=== PATIENT | male | born 1945 | race Caucasian/White ===

== ENCOUNTER 2018-11-23 13:55 | Inpatient (IN) | payer OTHER ==
[2018-11-23 14:09] LABS: PLATELET COUNT 156 10^3/uL (150-400)
--- NOTE | 2018-11-23 14:33 | EDPHY ---
H & P Stated Complaint: SKI CRASH @ [facility] - C/O LT RIB/FLSANK PAIN Time Seen by Provider: 11/23/18 14:30 HPI/ROS: CHIEF COMPLAINT: Skier versus tree, limited trauma activation, flank pain HISTORY OF PRESENT ILLNESS: The patient is brought in by paramedics as a limited trauma activation. He was a helmeted skier that struck a tree at a moderate rate of speed. The patient did not lose consciousness. He denies headache. He sustained a small abrasion to his face. Patient complains of pain in his posterior left ribs. His worsened with palpation, movement and deep breaths. The patient reports mild left upper quadrant pain. He denies any lower extremity complaints. The patient is not anticoagulated. Past medical history is significant for hypertension. Patient reports his pain is moderate to severe in nature. Patient did receive IV narcotics by paramedics pre-hospital. REVIEW OF SYSTEMS: A comprehensive 10 point review of systems is otherwise negative aside from elements mentioned in the history of present illness. Exam Limitations: No limitations - Personal History Current Tetanus Diphtheria and Acellular Pertussis (TDAP): Yes - Medical/Surgical History PMH: Past medical history: Hypertension, hypoaldosteronism, asthma Other PMH: HTN - Family History Significant Family History: No pertinent family hx - Social History Smoking Status: Never smoked - Physical Exam Exam: General Appearance: Alert, no distress Head: Superficial facial abrasions Eyes: Pupils equal, round, reactive ENT, Mouth: No hemotympanum, no oral trauma Neck: Nontender, trachea midline Respiratory: Tenderness to palpation left posterior chest wall, no subcutaneous air, lungs clear bilaterally Cardiovascular: Regular rate and rhythm Abdomen: Tenderness to palpation left upper quadrant Skin: No lacerations, No abrasion Back: Mild mid lumbar and thoracic tenderness Extremities: Nontender, full range of motion Neurological: A&Ox3, normal motor function, normal sensory exam Constitutional: Initial Vital Signs Temperature (C) 36.6 C 11/23/18 14:08 Heart Rate 57 L 11/23/18 14:08 Respiratory Rate 20 11/23/18 14:08 Blood Pressure 200/105 H 11/23/18 14:08 O2 Sat (%) 92 11/23/18 14:08 O2 Delivery Mode Nasal Cannula O2 (L/minute) 2 Allergies/Adverse Reactions: No Known Allergies Allergy (Unverified 11/23/18 14:06) Home Medications: Medication Instructions Recorded Cetirizine [ZyrTEC 10 mg (*)] 10 mg PO DAILY PRN 11/23/18 Eplerenone [Inspra 25 MG (*)] 50 mg PO BID 11/23/18 Fluticasone/Salmeterol [Advair Hfa 1 inh IH BID 11/23/18 115-21 Mcg Inhaler] Loratadine [Claritin 10 mg] 10 mg PO DAILY 11/23/18 Metoprolol Tartrate [Lopressor 50 50 mg PO BID 11/23/18 mg (*)] amLODIPine BESYLATE [Amlodipine 5 mg PO DAILY 11/23/18 Besylate] Medical Decision Making - Diagnostics Imaging Results: Imaging Impressions Chest X-Ray 11/23/18 13:58 Impression: 1. Minimally displaced posterior left eighth and ninth rib fractures. 2. Cardiomegaly. 3. Peribronchial thickening which can be seen with bronchitis or mild fluid overload. Abdomen CT 11/23/18 14:35 Impression: 1. Grade 4 splenic injury with contained intraparenchymal bleeding superior pole of spleen. 2. No other solid organ injury or acute bowel injury. 3. No free fluid or acute lumbar spine or pelvic fracture. 4. Cholelithiasis. No biliary dilation or common bile duct stone. 5. Right indirect inguinal hernia containing loop of small bowel. No obstruction or acute inflammatory process. 6. Left nephrolithiasis. Findings discussed with Emergency Department physician, Jaime Araiza, on 11/23, 15:54. Chest CT 11/23/18 14:35 Impression: 1. Acute nondisplaced posterior left 8th through 11th ribs. 2. No pneumothorax or hemothorax. 3. No acute aortic injury. Dilated ascending aorta (4.5 cm). Recommend intermittent follow up. 4. Right upper lobe and right lower lobe groundglass nodules may represent focal aspiration, pulmonary contusion, or inflammatory, infectious, or neoplastic nodules. Recommend follow-up low-dose noncontrast chest CT in 3 months. Findings discussed with Emergency Department physician, Jaime Araiza M.D. , at November 23, 2018 at 1554. E:amm Lumbar Spine CT 11/23/18 14:35 Impression: Negative. No acute fracture. Findings discussed with Emergency Department physician, Jaime Araiza on 2018, 15:54. Thoracic Spine CT 11/23/18 14:35 Impression: 1. No acute thoracic spine fracture. 2. Acute nondisplaced posterior 11th rib fracture at the junction with the spine. Findings discussed with Emergency Department physician, Jaime Araiza on 2018, 15:54. Procedures: Procedure: Trauma ultrasound. Limited bedside ultrasound was performed and interpreted by myself for the indication of: Chest contusion. The exam was performed utilizing the thoracoabdominal emergency ultrasound protocol. Limited transthoracic echocardiogram: The pericardium was visualized and found to be negative for pericardial fluid. The study was negative for pericardial effusion. Limited abdominal ultrasound for blunt abdominal trauma. 1) The right upper quadrant was visualized and was found to be negative for intraperitoneal fluid. 2) The left upper quadrant was visualized and found to be negative for intraperitoneal fluid. The study was felt to be negative for free intraperitoneal fluid. Limited pelvic ultrasound was conducted for abdominal tenderness. The bladder was visualized and did not reveal an anechoic area outside of the adjacent urinary bladder. Bladder was distended with urine. The images were saved on the ultrasound database. ED Course/Re-evaluation: The patient presents the ED is limited trauma activation after clotting with a tree. The patient is noted to be neurologically intact. He has no complaints of headache. He is not anticoagulated. I have cleared his cervical spine via nexus criteria. AP chest x-ray demonstrates rib fractures without pneumothorax. Given the patient's age mechanism a CT scan of the chest abdomen pelvis was ordered. CT scan of the abdomen pelvis does demonstrate rib fractures involving the left posterior 8th 9th 10th and 11th ribs. The patient also has a contained grade 4 splenic rupture. I re-evaluated the patient at 4:00 p.m.. The patient was given a mg of Dilaudid for pain control. Consultation was made with the Trauma surgery service. 4:00 p.m.: Blood pressure 170/60, heart rate 60 Differential Diagnosis: Differential diagnosis considered includes rib fracture, pneumothorax, hemothorax, retroperitoneal injury, intra-abdominal hemorrhage Critical Care Time: Critical care time exclusive of procedures and exclusive of the PA's time was 35 minutes, performed by myself, Jaime Araiza MD. Patient presents the emergency department as a trauma activation following a skier versus tree accident. The patient is noted to have a grade 4 splenic rupture. Patient will be admitted to the hospital under the care of the trauma service for close observation. - Data Points Laboratory Results: Laboratory Results 11/23/18 13:58 11/23/18 13:58 11/23/18 11/23/18 13:58 13:58 WBC 10.05 10^3/uL H 10^3/uL (3.80-9.50) RBC 4.82 10^6/uL 10^6/uL (4.40-6.38) Hgb 14.8 g/dL g/dL (13.7-17.5) Hct 44.5 % % (40.0-51.0) MCV 92.3 fL fL (81.5-99.8) MCH 30.7 pg pg (27.9-34.1) MCHC 33.3 g/dL g/dL (32.4-36.7) RDW 12.7 % % (11.5-15.2) Plt Count 156 10^3/uL 10^3/uL (150-400) MPV 11.2 fL fL (8.7-11.7) Neut % (Auto) 72.9 % % (39.3-74.2) Lymph % (Auto) 12.1 % L % (15.0-45.0) Bladen % (Auto) 9.4 % % (4.5-13.0) Eos % (Auto) 3.9 % % (0.6-7.6) Baso % (Auto) 1.1 % % (0.3-1.7) Nucleat RBC Rel Count 0.0 % % (0.0-0.2) Absolute Neuts (auto) 7.33 10^3/uL H 10^3/uL (1.70-6.50) Absolute Lymphs (auto) 1.22 10^3/uL 10^3/uL (1.00-3.00) Absolute Monos (auto) 0.94 10^3/uL H 10^3/uL (0.30-0.80) Absolute Eos (auto) 0.39 10^3/uL 10^3/uL (0.03-0.40) Absolute Basos (auto) 0.11 10^3/uL H 10^3/uL (0.02-0.10) Absolute Nucleated RBC 0.00 10^3/uL 10^3/uL (0-0.01) Immature Gran % 0.6 % % (0.0-1.1) Immature Gran # 0.06 10^3/uL 10^3/uL (0.00-0.10) Sodium 139 mEq/L mEq/L (135-145) Potassium 3.7 mEq/L mEq/L (3.5-5.2) Chloride 102 mEq/L mEq/L (97-110) Carbon Dioxide 28 mEq/l mEq/l (22-31) Anion Gap 9 mEq/L mEq/L (6-14) BUN 27 mg/dL H mg/dL (7-23) Creatinine 1.0 mg/dL mg/dL (0.7-1.3) Estimated GFR > 60 Glucose 106 mg/dL H mg/dL (70-100) Calcium 9.4 mg/dL mg/dL (8.5-10.4) Departure - Departure Disposition: [facility] Inpatient Acute Clinical Impression: Multiple rib fractures, Splenic rupture Condition: Fair
[2018-11-23] MEDS ORDERED: IOHEXOL 300 mgI/ML (OMNIPAQUE) 150 ML BTL IV ONE (14:41)
[2018-11-23] MEDS ORDERED: HYDROmorphONE/DILAUDID 1 MG/ML INJ ONE (17:38)
[2018-11-23] MEDS ORDERED: HYDROmorphONE/DILAUDID 1 MG/ML INJ IVP ONE (17:41)
[2018-11-23] MEDS ORDERED: OXYCODONE/APAP 5/325 TAB PO PRN (18:50)
--- NOTE | 2018-11-23 20:47 | SOAPPROG ---
SOAP Progress Note Assessment/Plan: Assessment: 72-YEAR-OLD MALE IN A SKI ACCIDENT HIS STRIKING A TREE BUT NO LOSS OF CONSCIOUSNESS/ADMIT FOR OBSERVATION HE SUSTAINED NO SIGNIFICANT HEAD TRAUMA HE WAS WEARING A HELMET ALSO SUSTAINED MULTIPLE LEFT 8 THROUGH 11 NONDISPLACED RIB FRACTURES AND A CONTAINED SPLEEN LACERATION VITAL SIGNS STABLE CHEST CLEAR BUT TENDER POSTERIORLY COR REGULAR RHYTHM ABDOMEN SOFT MILD TENDERNESS Plan: ADMIT FOR OBSERVATION, SERIAL HEMATOCRITS, FOLLOW-UP CHEST X-RAY, PAIN CONTROL AND THERAPY FOR RIB FRACTURES 11/23/18 20:44 Objective: Vital Signs Temp Pulse Resp BP Pulse Ox 36.6 C 53 L 16 153/84 H 90 L 11/23/18 19:54 11/23/18 19:54 11/23/18 19:54 11/23/18 19:54 11/23/18 19:54 11/22/18 11/23/18 11/24/18 05:59 05:59 05:59 Intake Total 500 Balance 500 ICD10 Worksheet Patient Problems: Problems Problem Status Onset Multiple rib fractures Acute Splenic rupture Acute
--- NOTE | 2018-11-23 20:54 | GHP ---
[f rep st] PREOP HISTORY AND PHYSICAL DATE OF ADMISSION: 11/23/2018 HISTORY OF PRESENT ILLNESS: The patient is a 72-year-old male who slipped skiing and hit a tree on h is left side. He denies any loss of consciousness. Complains of left-sided posterior chest pain and mild left upper quadrant pain. He was wearing a helmet. He is quite an experienced skier and at th is time for pain control. CT scan reveals left 8 through 11 minimally displaced rib fractures with n o pneumo or hemothorax. He also has a contained spleen laceration with no free blood. No other intr aabdominal findings. PAST MEDICAL HISTORY: Includes hypertension, hypoaldosteronism. He has a history of prostate cancer for which he had a prostatectomy. He has had a knee scope. He has asthma. ALLERGIES: None. MEDICATIONS: Medications include Advair, amlodipine, Claritin, metoprolol, Inspira and Zyrtec. REVIEW OF SYSTEMS: Negative on a full 10-point review of systems except as related to the HPI. On s ystem review, he does not smoke. He denies diabetes or any coronary disease. He does have asthma. PHYSICAL EXAMINATION: GENERAL APPEARANCE: An alert 72-year-old male in no acute distress. HEENT/NE CK: Head and neck exam are essentially benign with no icterus, adenopathy, or signs of significant t rauma. He is PERRLA, EOMs are intact. Occlusion is normal. No oral lesions. Neck is supple and no ntender with full range of motion. CHEST: Clear and symmetric. He has tenderness over the left pos terior lateral ribs distally. CARDIAC: Regular rhythm without murmurs. ABDOMEN: Soft with bowel s ounds. He is mildly tender in the left upper quadrant. No palpable masses or organomegaly. He may have a right inguinal hernia. GENITALIA: Normal. EXTREMITIES: Reveal full range of motion. Full pulses. NEUROLOGIC: Physiologic and symmetric. PSYCH: Reveals him to be alert, oriented, and coop erative. IMPRESSION: 1. Left rib fractures. 2. Splenic laceration. 3. History of asthma. 4. History of hypertension. 5. Asymptomatic cholelithiasis. 6. Incidental findings are to 2 lung spots seen in his right chest. The patient has been informed t o obtain followup of these when he is back home in [place]. He has no history of known lung lesio ns in the past. PLAN: Admit for pain control. Followup chest x-ray and observation with serial hematocrits. Risks and options have been fully discussed, and he understands and wished to proceed. /[id number]/MODL
[2018-11-23] MEDS: D5W 1/2 NS 1,000 ML IV SCH (22:44)
[2018-11-24 05:14] LABS: PLATELET COUNT 119 10^3/uL (150-400)
--- NOTE | 2018-11-24 06:20 | SOAPPROG ---
MAE Progress Note Assessment/Plan: Assessment: 72-YEAR-OLD MALE IN A SKI ACCIDENT HIS STRIKING A TREE BUT NO LOSS OF CONSCIOUSNESS/ADMIT FOR OBSERVATION HE SUSTAINED NO SIGNIFICANT HEAD TRAUMA HE WAS WEARING A HELMET ALSO SUSTAINED MULTIPLE LEFT 8 THROUGH 11 NONDISPLACED RIB FRACTURES AND A CONTAINED SPLEEN LACERATION VITAL SIGNS STABLE CHEST CLEAR BUT TENDER POSTERIORLY COR REGULAR RHYTHM ABDOMEN SOFT MILD TENDERNESS Plan: ADMIT FOR OBSERVATION, SERIAL HEMATOCRITS, FOLLOW-UP CHEST X-RAY, PAIN CONTROL AND THERAPY FOR RIB FRACTURES 11/23/18 20:44 11/24/18 06:17 CALLED THIS AM ABOUT BP DOWN TO 86/ PRESENTLY 112/80, [id number] ABD REMAINS SOFT AND NONTENDER/ BS EQUAL AND EXPANDED CXR PENDING HCT 44---38--35 PT ON BETABLOCKERS WILL ORDER REPEAT CT DESPITE NEGATIVE EXAM Objective: Vital Signs Temp Pulse Resp BP Pulse Ox 36.6 C 66 16 86/49 L 96 11/24/18 04:00 11/24/18 04:00 11/24/18 04:00 11/24/18 04:00 11/24/18 04:00 Laboratory Results 11/24/18 04:41 11/23/18 11/24/18 11/25/18 05:59 05:59 05:59 Intake Total 1000 Output Total 400 Balance 600 ICD10 Worksheet Patient Problems: Problems Problem Status Onset Multiple rib fractures Acute Splenic rupture Acute
--- NOTE | 2018-11-24 08:42 | TRAUMAPN ---
Trauma Progress Note Assessment/Plan: 72yo M s/p ski injury admitted with L 8-11 rib fx, grade IV splenic laceration and concussion. +LOC, helmeted. Tertiary survey negative with no new injuries Acute blood loss anemia - trending down, monitor H/H Hemodynamically stable. Repeat abdominal CT today - increased hemoperitoneum in all 4 quadrants with active extrav from superior pole of spleen. To IR for embolization. Repeat CXR today - no PTX Dispo: inpatient for intervention, pain control, obs. Seen with Dr. Dove. S: slept well. No new complaints this am. Pain controlled. No nausea or dizziness O: General: Pleasant, well-nourished and well-groomed man in no acute distress, comfortable HENT: Normocephalic, no gross hearing deficits, mucous membranes moist, pupils equal and round Lungs: Clear to auscultation bilaterally, No increased work of breathing. Supplemental oxygen. No chest wall ecchymosis. Cardiac: Regular rate, no peripheral edema Abdomen: Bowel sounds present, soft and non tender, non distended. Skin: Warm and dry. Psych: Mood and affect normal Neuro: Grossly intact Objective: Vital Signs Temp Pulse Resp BP Pulse Ox 36.4 C 66 16 104/67 95 11/24/18 07:52 11/24/18 07:52 11/24/18 07:52 11/24/18 07:52 11/24/18 07:52 Laboratory Results 11/24/18 07:47 11/23/18 11/24/18 11/25/18 05:59 05:59 05:59 Intake Total 1000 Output Total 400 Balance 600
[2018-11-24] MEDS ORDERED: IOHEXOL 300 mgI/ML (OMNIPAQUE) 150 ML BTL IV ONE (08:55)
--- NOTE | 2018-11-24 10:00 | ASMTCASEMG ---
Living Arrangements What is your living Answers: With Spouse arrangement? Who do you live with? Type Of Residence What kind of residence do Answers: House you live in? Type of Residence Facility Name Notes: Patient lives in [place], [place]. He has a son and a brother here in [place] and came here to [facility]. Discharge Plan Comments Coordination Status Comments Notes: Patient is a 72yo male from [place], [place] who came here to [facility] and hit a tree on his left side. He is being admitted for left rib fractures, splenic laceration,hypertension and asymptomatic cholelithiasis. There were 2 lung spots seen in his right chest as well which he has been advised to follow up with these in [place]. OT/PT evals have been ordered. D/C plan TBD. CM will follow. Date Signed: 11/24/2018 09:59 AM Electronically Signed By:Kanwal Swenson LCSW
--- NOTE | 2018-11-24 10:08 | PDMN ---
Medical Necessity [place] [facility] [place], A-2 days: 72 yo skier vs. tree. Imaging reveals multi rib fx (left 8-11) and splenic laceration. Admit IP status for pain control, serial H/H. [place] [facility] [place] for 3 or more traumatic rib fxs.
[2018-11-24] MEDS ORDERED: IOPAMIDOL (ISOVUE-300) 100 ML BTL ONE ×2 (10:29→14:04)
[2018-11-24] MEDS ORDERED: LIDOCAINE 1% 300 MG/30 ML SDV ONE (10:29)
[2018-11-24] MEDS ORDERED: NALOXONE HCL 0.4 MG/ML INJ IVP PRN (10:47)
[2018-11-24] MEDS ORDERED: MIDAZOLAM 2 MG/2 ML VIAL IVP PRN (10:47)
[2018-11-24] MEDS ORDERED: FLUMAZENIL 0.5 MG/5 ML MDV IVP PRN (10:47)
[2018-11-24] MEDS ORDERED: fentaNYL 100 MCG/2 ML INJ IVP PRN (10:47)
[2018-11-24] MEDS ORDERED: fentaNYL 100 MCG/2 ML INJ ONE ×2 (10:50→13:07)
[2018-11-24] MEDS ORDERED: NALOXONE HCL 0.4 MG/ML INJ ONE (10:50)
[2018-11-24] MEDS ORDERED: MIDAZOLAM 2 MG/2 ML VIAL ONE ×3 (10:50→13:07)
[2018-11-24] MEDS ORDERED: FLUMAZENIL 0.5 MG/5 ML MDV IVP ONE (10:50)
[2018-11-24] MEDS ORDERED: NS 1,000 ML IV SCH (11:00)
[2018-11-24 11:19] LABS: INR 1.19 (0.83-1.16); PROTIME(PATIENT) 15.3 SEC (12.0-15.0)
--- NOTE | 2018-11-24 11:46 | PDHPUP ---
History & Physical Update H&P update statement: This history and physical update is based on an assessment of the patient which was completed after admission or registration (within 24 hours), but prior to the surgery/procedure. Splenic laceration with worsening hemoperitoneum and active extravasation on CTA. Pt. hemodynamically stable. Plan for transcatheter embolization of spleen as selective as possible, though atherosclerosis and tortuosity may prevent superselective embolization. H&P update: H&P reviewed & patient examined, no change in patient's condition since H&P completed
--- NOTE | 2018-11-24 11:47 | PDPROPOC ---
Sedation Plan of Care ASA Classification: ASA 3 Planned drugs: fentanyl, midazolam Mallampati Score: Class 2 Mallampati Reference Image: Patient passed 3-3-2 rule?: Yes
--- NOTE | 2018-11-24 13:58 | PDRADPN ---
Radiology Procedure Note Date of Procedure: 11/24/18 Radiologist: Nolberto Gomez Anesthesia: IV Sedation Pre-op Diagnosis: Splenic laceration Post-op Diagnosis: Splenic laceration Indication: Continued hemorrhage/active extrav on CTA Procedure: Embolization Finding(s): Multiple splenic hemorrhages upper pole spleen, unable to selectively catheterize given tortuosity. Proximal gelfoam embolization resulting in complete hemostasis. Lower pole splenic branch should retain some splenic function. Inf/Abcess present in the surg proc area at time of surgery?: No
--- NOTE | 2018-11-24 14:45 | GCON ---
[f rep st] CONSULTATION DATE OF CONSULTATION: 11/24/2018 REFERRING PHYSICIAN: Graciela Dove MD HISTORY OF PRESENT ILLNESS: The patient is a 72-year-old male who fell skiing and hit on a tree on h is left side. He presented to the emergency room with complaints of posterior left chest pain, as we ll as mild left upper quadrant pain. He denies any loss of consciousness. He states he was wearing a helmet. He does not feel that he hit his head. Denies any nausea, vomiting, diarrhea. Denies any fever, sweats, or night chills. Denies any shortness of breath or dyspnea. PAST MEDICAL HISTORY: Hypertension, hypoaldosteronism, history of prostate cancer, asthma. PAST SURGICAL HISTORY: Knee scope. ALLERGIES: None. MEDICATIONS: Include Advair, amlodipine 5 mg daily, Zyrtec 10 mg daily, Inspra 50 mg b.i.d., Clariti n 10 mg daily, Lopressor 50 mg p.o. b.i.d. REVIEW OF SYSTEMS: Comprehensive 10-point review of systems is negative, other than noted in the HPI . PHYSICAL EXAM: GENERAL: The patient is alert. VITAL SIGNS: Afebrile at 36.5, pulse is 61, respira tory rate 15, blood pressure is 116/63. He is saturating 95% on 4 L. HEENT: Normocephalic, atrauma tic. Mucosal membranes are moist. Pupils equal, round, reactive to light. RESPIRATORY: Lungs are clear to auscultation bilaterally. No rhonchi or wheezes appreciated. CARDIOVASCULAR: Regular rate and rhythm. No gallop or murmur noted. GASTROINTESTINAL: Abdomen bowel sounds are positive. Soft . Mild tenderness in the left upper quadrant. EXTREMITIES: Within normal limits. There is no club alecia or cyanosis noted. SKIN: Without rashes or lesions. NEUROLOGIC: The patient has no focal def icits. RADIOLOGICAL EVALUATION: 1. CT of the abdomen chief notes a grade IV splenic injury with contained bleeding, as well as a rig ht indirect inguinal hernia. 2. Chest CT: Acute nondisplaced posterior left 8 through 11 rib fractures. No pneumothorax or hemo thorax. Ground-glass nodules noted. 3. Lumbar spine CT shows nothing acute identified. 4. Thoracic spine CT: No acute fractures. FAMILY HISTORY: Noncontributory. SOCIAL HISTORY: The patient is 72. He denies any current tobacco use. He is very active. LABORATORY EVALUATION: Hemoglobin 11 with hematocrit of 33.8, white count of 11.6, platelet count is 119. INR is 1.19. Other laboratory evaluations within normal limits. ASSESSMENT AND PLAN: 1. Left rib fractures. Pain control will be continued. Further evaluation and monitoring will be d one for trauma. 2. Splenic laceration. Hemoglobin, hematocrit are being trended. Requiring Interventional Radiolog y for embolization due to repeat CT scan of the abdomen noting increased bleeding. 3. History of asthma. His home medications will be continued. 4. History of hypertension. We will reinitiate his antihypertensive medications when it is felt selena t he is stable with regard to his bleeding. His blood pressure currently is on the lower end, so ant ihypertensive medications should not be initiated at this time. We will defer them until further isacc luation and changes within the patient's status. 5. Asymptomatic cholelithiasis. No intervention warranted. 6. Abnormal lung spots on the right chest. This requires followup in the outpatient setting. The p atodette will follow up when he returns to [place] where he normally resides. 7. Pain control. We will continue supportive management. The patient's pain is currently within no rmal limits. I appreciate the ability to consult on this pleasant gentleman's care. We will continue to follow woo derek during his hospitalization. /[id number]/MODL
[2018-11-24] MEDS ORDERED: ONDANSETRON 4 MG/2 ML VIAL IVP PRN (14:53)
[2018-11-24] MEDS: HYDROmorphONE/DILAUDID 1 MG/ML INJ IVP PRN ×2 (15:14→17:28)
[2018-11-24] MEDS ORDERED: HYDROmorphONE/DILAUDID 1 MG/ML INJ IVP PRN (18:24)
[2018-11-24] MEDS ORDERED: ACETAMINOPHEN 325 MG TAB PO PRN (18:24)
[2018-11-24] MEDS: FLUTICASONE IH SCH (20:58)
[2018-11-24] MEDS: SALMETEROL IH SCH (20:58)
[2018-11-24] MEDS: HYDROCODONE/APAP 5/325 TAB PO PRN (22:07)
[2018-11-25] MEDS: D5W 1/2 NS 1,000 ML IV SCH (01:05)
[2018-11-25] MEDS: HYDROCODONE/APAP 5/325 TAB PO PRN ×6 (02:28→23:06)
[2018-11-25 06:10] LABS: PLATELET COUNT 106 10^3/uL (150-400)
--- NOTE | 2018-11-25 08:41 | SOAPPROG ---
SOAP Progress Note Assessment/Plan: Assessment: Plan: Subjective: complaining of left rib pain pe: heent wnl lungs clear heart nml s1s1 abd soft hct 25- equilibrating, doubt any active bleed. i ordered a hct tomorrow. would not trransfuse unless symptomatic assess: left rib fx, grade 4 splenic lac s/p embolization. i discussed with the pt need to observe in hospital 5-6 days, avoiding asa as outpt, avoiding risk activities for 2-3 months after discharge, etc Objective: Vital Signs Temp Pulse Resp BP Pulse Ox 36.6 C 80 16 131/73 H 93 11/25/18 07:40 11/25/18 07:40 11/25/18 07:40 11/25/18 07:40 11/25/18 07:40 Laboratory Results 11/25/18 04:49 11/24/18 11/25/18 11/26/18 05:59 05:59 05:59 Intake Total 1900 Output Total 1000 250 Balance 900 -250 PT 15.3 SEC (12.0-15.0) H 11/24/18 11:04 INR 1.19 (0.83-1.16) H 11/24/18 11:04 ICD10 Worksheet Patient Problems: Problems Problem Status Onset Multiple rib fractures Acute Splenic rupture Acute
[2018-11-25] MEDS: FLUTICASONE IH SCH ×2 (10:16→21:08)
[2018-11-25] MEDS: SALMETEROL IH SCH ×2 (10:16→21:08)
--- NOTE | 2018-11-25 16:18 | HOSPPROG ---
Hospitalist Progress Note Assessment/Plan: 72-year-old male with past medical history of asthma and hypertension admitted with a splenic laceration and left rib fractures after crashing while skiing. Splenic laceration- underwent embolization by Interventional Radiology. 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 Left rib fractures- pain control History of asthma- continue home meds Hypertension- current normotensive. Will resume antihypertensives as pressure rises. Prophylaxis- per trauma Fluids- p.o. Electrolytes- within normal limits Nutrition- regular diet Dispo- inpatient for splenic laceration Subjective: Pain adequately controlled. Tolerating p.o. Objective: Vital Signs Temp Pulse Resp BP Pulse Ox 36.9 C 75 16 123/70 H 90 L 11/25/18 12:00 11/25/18 12:00 11/25/18 12:00 11/25/18 12:00 11/25/18 12:00 Laboratory Results 11/25/18 04:49 11/24/18 11/25/18 11/26/18 05:59 05:59 05:59 Intake Total 1900 Output Total 1000 250 Balance 900 -250 PT 15.3 SEC (12.0-15.0) H 11/24/18 11:04 INR 1.19 (0.83-1.16) H 11/24/18 11:04 - Physical Exam Constitutional: no apparent distress, appears nourished, not in pain Eyes: PERRL, anicteric sclera, EOMI Ears, Nose, Mouth, Throat: moist mucous membranes, hearing normal, ears appear normal, no oral mucosal ulcers Cardiovascular: regular rate and rhythym, no murmur, rub, or gallop Respiratory: no respiratory distress, no rales or rhonchi, clear to auscultation Gastrointestinal: normoactive bowel sounds, soft, non-tender abdomen, no palpable masses Genitourinary: no bladder fullness, no bladder tenderness, no renal bruits Skin: no rashes or abrasions, no fluctuance, no induration Musculoskeletal: full muscle strength, no muscle tenderness, normal joint ROM Neurologic: AAOx3, sensation intact bilaterally Psychiatric: interacting appropriately, not anxious, not encephalopathic, thought process linear Lymph, Heme, Immunologic: no cervical LAD, no supraclavicular LAD ICD10 Worksheet Patient Problems: Problems Problem Status Onset Multiple rib fractures Acute Splenic rupture Acute
[2018-11-25] MEDS ORDERED: BISACODYL 10 MG SUPP PR PRN (20:35)
[2018-11-25] MEDS ORDERED: LACTULOSE 20 GM/30 ML UDCUP PO PRN (20:35)
[2018-11-25] MEDS ORDERED: POLYETHYLENE GLYCOL 3350 17 GM PKT PO PRN (20:35)
[2018-11-25] MEDS: SENNOSIDES/DOCUSATE SODIUM TAB PO SCH (21:22)
[2018-11-26] MEDS: HYDROCODONE/APAP 5/325 TAB PO PRN ×5 (03:03→22:13)
[2018-11-26] MEDS: SENNOSIDES/DOCUSATE SODIUM TAB PO SCH ×2 (07:53→22:13)
[2018-11-26] MEDS: SALMETEROL IH SCH ×2 (07:57→20:21)
[2018-11-26] MEDS: FLUTICASONE IH SCH ×2 (07:57→20:21)
[2018-11-26] MEDS: amLODIPine BESYLATE 5 MG TAB PO SCH (09:43)
[2018-11-26] MEDS: METOPROLOL TARTRATE 50 MG TAB PO SCH ×2 (09:43→22:13)
--- NOTE | 2018-11-26 11:24 | SOAPPROG ---
SOAP Progress Note Assessment/Plan: Assessment/plan: 72 y/o M s/p fall while skiing Grade IV splenic laceration. S/p embolization in IR. Hct down slightly to 25. Serial H&Hs ordered. Wait to transfuse. Left rib fractures. Continue IS, deep breathing and coughing. Asthma and HTN. Appreciate hospitalist input. Dispo: continue inpt status with serial H&Hs and pulm toilet S: Doing well overall. Denies abdominal pain. Endorses L sided chest pain with deep breaths. O: Alert Afebrile VSS Normocephalic, atraumatic, PERRLA, mmm Trachea midline RRR CTAB, no increased WOB, ttp L chest Abdomen: soft, nontender, nondistended, +BS Neuro: CN 2-12 grossly intact MAEx4 Tertiary exam completed, no new pain or injuries noted. 11/26/18 11:18 Objective: Vital Signs Temp Pulse Resp BP Pulse Ox 36.8 C 70 16 135/70 H 95 11/26/18 11:13 11/26/18 11:13 11/26/18 11:13 11/26/18 11:13 11/26/18 11:13 Laboratory Results 11/26/18 05:18 11/25/18 11/26/18 11/27/18 05:59 05:59 05:59 Intake Total 1900 1950 Output Total 1000 850 300 Balance 900 1100 -300 PT 15.3 SEC (12.0-15.0) H 11/24/18 11:04 INR 1.19 (0.83-1.16) H 11/24/18 11:04 ICD10 Worksheet Patient Problems: Problems Problem Status Onset Multiple rib fractures Acute Splenic rupture Acute
[2018-11-26] MEDS ORDERED: CETIRIZINE 10 MG TAB PO ONE (12:27)
[2018-11-26] MEDS: MAGNESIUM HYDROXIDE 30 ML UDCUP PO PRN (13:10)
[2018-11-26] MEDS: FLUTICASONE NASAL 120 SPRAYS/16 GM MDI EACHNARE SCH (13:10)
--- NOTE | 2018-11-26 14:43 | ASMTCMCOM ---
CM Note CM Note Notes: Pts case discussed w/ Dr. Belcher. PT is recommending HC. CM met w/ pt for dispo planning. Pt is agreeable to HC services. Pt will be staying w/ his brother and sister in law in [place], [place]. Referral sent to [facility]. [facility] able to [facility]. Brother's address is [address] [place] [id number]. CM spoke w/ Dhaval with trauma and Dr. Bueno will be able to sign off on the HC orders. CM communicated this information w/ Cleo at [facility]. CM to follow. Plan: [facility]; PT Date Signed: 11/26/2018 02:42 PM Electronically Signed By:MOY Waterman
--- NOTE | 2018-11-26 15:46 | HOSPPROG ---
Hospitalist Progress Note Assessment/Plan: 72-year-old male with past medical history of asthma and hypertension admitted with a splenic laceration and left rib fractures after crashing while skiing. Splenic laceration- underwent embolization by Interventional Radiology. 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 -will need to remain in house for 5-6 days for observation -H/H slightly down, monitor closely -Trauma primary Left rib fractures- pain control History of asthma- continue home meds, ordered zyrtec and flonase for allergies. Hypertension- now hypertensive. restarted home lopressor and norvasc. Prophylaxis- per trauma Fluids- p.o. Electrolytes- within normal limits Nutrition- regular diet Dispo- inpatient for splenic laceration, will need observation for total 5-6 days. Subjective: confortable. no complaints. Objective: Vital Signs Temp Pulse Resp BP Pulse Ox 36.8 C 70 16 135/70 H 95 11/26/18 11:13 11/26/18 11:13 11/26/18 11:13 11/26/18 11:13 11/26/18 11:13 Laboratory Results 11/26/18 05:18 11/25/18 11/26/18 11/27/18 05:59 05:59 05:59 Intake Total 1900 1950 Output Total 1000 850 300 Balance 900 1100 -300 PT 15.3 SEC (12.0-15.0) H 11/24/18 11:04 INR 1.19 (0.83-1.16) H 11/24/18 11:04 - Physical Exam Constitutional: no apparent distress, appears nourished, not in pain Eyes: PERRL, anicteric sclera, EOMI Ears, Nose, Mouth, Throat: moist mucous membranes, hearing normal, ears appear normal, no oral mucosal ulcers Cardiovascular: regular rate and rhythym, no murmur, rub, or gallop Respiratory: no respiratory distress, no rales or rhonchi, clear to auscultation Gastrointestinal: normoactive bowel sounds, soft, non-tender abdomen, no palpable masses Genitourinary: no bladder fullness, no bladder tenderness, no renal bruits Skin: no rashes or abrasions, no fluctuance, no induration Musculoskeletal: full muscle strength, no muscle tenderness, normal joint ROM Neurologic: AAOx3, sensation intact bilaterally Psychiatric: interacting appropriately, not anxious, not encephalopathic, thought process linear Lymph, Heme, Immunologic: no cervical LAD, no supraclavicular LAD ICD10 Worksheet Patient Problems: Problems Problem Status Onset Multiple rib fractures Acute Splenic rupture Acute
--- NOTE | 2018-11-26 17:13 | PDIAF ---
- Medication Management Discharge Medications: electronically signed and located in the Home Medication List. - Orders Services needed: Home Care, Physical Therapy, Occupational Therapy Home Care Face to Face: I certify that this patient was under my care and that I had the required [id number] encounter meeting the encounter requirements on the discharge day. My findings support the fact that the patient is homebound as defined in Home Care Face to Face Continued: CMS Chapter 7 Medicare Benefits Manual 30.1.1 , The condition of the patient is such that there exists a normal inability to leave home and consequently, leaving home would require a considerable and taxing effort. Diet Recommendation: no restrictions on diet Diet Texture: Regular Texture Diet Additional Instructions: FOLLOW UP WITH YOUR PCP IN [place] R/T INCIDENTAL CT FINDINGS RIGHT UPPER ( 1.5X1.3CM)/LOWER LOBE (2.5X2CM) GROUND GLASS NODULES. - Follow Up Care Current Providers and Referrals: Patient,NotPresent [Unknown] - As per Instructions
[2018-11-27] MEDS: HYDROCODONE/APAP 5/325 TAB PO PRN ×5 (00:30→20:17)
--- NOTE | 2018-11-27 08:24 | TRAUMAPN ---
Trauma Progress Note Assessment/Plan: 72yo M s/p ski injury admitted with L 8-11 rib fx, grade IV splenic laceration and concussion. +LOC, helmeted. S/P IR embolization of active bleed superior aspect of spleen Acute blood loss anemia - trending down, monitor H/H. Recheck in am. Recheck in 1 week ([place] or [place]) Hemodynamically stable. Pulmonary toilet - IS goal 1999 Evaluation for functional asplenism - will f/u as outpt PCP in [place] Dispo: lives in [place] - can stay with brother in [place] while recovering. Seen with Dr. Dove. S: feeling very well. O: General: Pleasant, well-nourished and well-groomed man in no acute distress, comfortable HENT: Normocephalic, no gross hearing deficits, mucous membranes moist, pupils equal and round Lungs: Clear to auscultation bilaterally, No increased work of breathing. Supplemental oxygen. No chest wall ecchymosis. Cardiac: Regular rate, no peripheral edema Abdomen: Bowel sounds present, soft and non tender, non distended. Skin: Warm and dry. Psych: Mood and affect normal Neuro: Grossly intact Objective: Vital Signs Temp Pulse Resp BP Pulse Ox 36.9 C 62 16 173/88 H 92 11/27/18 08:12 11/27/18 08:12 11/27/18 08:12 11/27/18 08:12 11/27/18 08:12 Laboratory Results 11/27/18 04:39 11/26/18 11/27/18 11/28/18 05:59 05:59 05:59 Intake Total 1950 500 Output Total 850 300 Balance 1100 200 PT 15.3 SEC (12.0-15.0) H 11/24/18 11:04 INR 1.19 (0.83-1.16) H 11/24/18 11:04
[2018-11-27] MEDS ORDERED: CETIRIZINE 10 MG TAB PO PRN (08:44)
[2018-11-27] MEDS: amLODIPine BESYLATE 5 MG TAB PO SCH (08:45)
[2018-11-27] MEDS: METOPROLOL TARTRATE 50 MG TAB PO SCH ×2 (08:45→20:18)
[2018-11-27] MEDS: SENNOSIDES/DOCUSATE SODIUM TAB PO SCH ×2 (08:45→20:18)
[2018-11-27] MEDS: FLUTICASONE IH SCH ×2 (08:47→22:18)
[2018-11-27] MEDS: SALMETEROL IH SCH ×2 (08:47→22:18)
[2018-11-27] MEDS: FLUTICASONE NASAL 120 SPRAYS/16 GM MDI EACHNARE SCH (08:48)
[2018-11-27] MEDS: CETIRIZINE 10 MG TAB PO SCH (08:48)
[2018-11-27] MEDS: EPLERENONE 25 MG TAB PO SCH ×2 (09:19→20:18)
[2018-11-27] MEDS: MAGNESIUM HYDROXIDE 30 ML UDCUP PO PRN (11:56)
--- NOTE | 2018-11-27 15:12 | HOSPPROG ---
Hospitalist Progress Note Assessment/Plan: 72-year-old male with past medical history of asthma and hypertension admitted with a splenic laceration and left rib fractures after crashing while skiing. #Splenic laceration -underwent embolization by Interventional Radiology. -rec vaccinated against capsulated organisms -H/H slightly down, monitor closely -Trauma primary #Left rib fractures - pain control #History of asthma - continue home meds, ordered zyrtec and flonase for allergies. #Hypotension - now hypertensive. -restarted home lopressor and norvasc. Prophylaxis- per trauma Fluids- p.o. Electrolytes- within normal limits Nutrition- regular diet Dispo- inpatient for splenic laceration cont to monitor H/H Subjective: Feeling ok. No specific issues. Pain stable. Objective: Vital Signs Temp Pulse Resp BP Pulse Ox 37.0 C 61 16 140/75 H 91 L 11/27/18 12:00 11/27/18 12:00 11/27/18 12:00 11/27/18 12:00 11/27/18 12:00 Laboratory Results 11/27/18 04:39 11/26/18 11/27/18 11/28/18 05:59 05:59 05:59 Intake Total 1950 500 Output Total 850 300 Balance 1100 200 PT 15.3 SEC (12.0-15.0) H 11/24/18 11:04 INR 1.19 (0.83-1.16) H 11/24/18 11:04 - Physical Exam Constitutional: no apparent distress, appears nourished Eyes: PERRL, anicteric sclera Ears, Nose, Mouth, Throat: moist mucous membranes, hearing normal Cardiovascular: No JVD, No edema Respiratory: no respiratory distress, reduced air movement Gastrointestinal: tenderness, No ascites Skin: warm, normal color Musculoskeletal: no joint effusions, generalized weakness Neurologic: AAOx3 Psychiatric: interacting appropriately, not anxious, not encephalopathic ICD10 Worksheet Patient Problems: Problems Problem Status Onset Multiple rib fractures Acute Splenic rupture Acute
[2018-11-28] MEDS: HYDROCODONE/APAP 5/325 TAB PO PRN ×3 (00:43→10:11)
[2018-11-28] MEDS: amLODIPine BESYLATE 5 MG TAB PO SCH (08:06)
[2018-11-28] MEDS: EPLERENONE 25 MG TAB PO SCH ×2 (08:06→22:10)
[2018-11-28] MEDS: METOPROLOL TARTRATE 50 MG TAB PO SCH ×2 (08:06→22:10)
[2018-11-28] MEDS: CETIRIZINE 10 MG TAB PO SCH (08:06)
[2018-11-28] MEDS: SENNOSIDES/DOCUSATE SODIUM TAB PO SCH ×2 (08:38→22:11)
[2018-11-28] MEDS: FLUTICASONE IH SCH ×2 (08:55→21:00)
[2018-11-28] MEDS: SALMETEROL IH SCH ×2 (08:55→21:00)
[2018-11-28] MEDS: FLUTICASONE NASAL 120 SPRAYS/16 GM MDI EACHNARE SCH (08:55)
--- NOTE | 2018-11-28 09:22 | TRAUMAPN ---
Trauma Progress Note Assessment/Plan: 72yo M s/p ski injury admitted with L 8-11 rib fx, grade IV splenic laceration ( s/p superior pole embolization) and concussion. +LOC, helmeted. No overnight events - tapering down on O2. pain well controlled with 2 norco. no new complaints. AVSS comfortable heart reg lungs clear abd nontender right groin puncture site clean normal extremities doing well plan for continued PT/OT today family will be home for discharge to son's house tomorrow in [place] before returning to [place] he is arranging home care needs today will plan to f/u here in [place] toward end of week for repeat CBC and post hospitalization check up else can have done in [place] care plan reviewed with nursing staff Objective: Vital Signs Temp Pulse Resp BP Pulse Ox 36.9 C 62 16 162/93 H 95 11/28/18 07:39 11/28/18 08:06 11/28/18 07:39 11/28/18 08:06 11/28/18 07:39 Laboratory Results 11/28/18 04:46 11/27/18 11/28/18 11/29/18 05:59 05:59 05:59 Intake Total 500 400 Output Total 300 Balance 200 400 PT 15.3 SEC (12.0-15.0) H 11/24/18 11:04 INR 1.19 (0.83-1.16) H 11/24/18 11:04
--- NOTE | 2018-11-28 14:01 | HOSPPROG ---
Hospitalist Progress Note Assessment/Plan: 72-year-old male with past medical history of asthma and hypertension admitted with a splenic laceration and left rib fractures after crashing while skiing. #Splenic laceration -underwent embolization by Interventional Radiology. -rec vaccinated against capsulated organisms -H/H stable -Trauma primary -D/W Dr Friend #Left rib fractures - pain control #History of asthma - continue home meds, ordered zyrtec and flonase for allergies. #Hypotension - now hypertensive. -restarted home lopressor and norvasc. Prophylaxis- per trauma Fluids- p.o. Electrolytes- within normal limits Nutrition- regular diet Dispo- inpatient for splenic laceration cont to monitor H/H Subjective: Up in chair. Feeling well. Objective: Vital Signs Temp Pulse Resp BP Pulse Ox 36.9 C 63 14 138/73 H 94 11/28/18 11:27 11/28/18 11:27 11/28/18 11:27 11/28/18 11:27 11/28/18 11:27 Laboratory Results 11/28/18 04:46 11/27/18 11/28/18 11/29/18 05:59 05:59 05:59 Intake Total 500 400 Output Total 300 Balance 200 400 PT 15.3 SEC (12.0-15.0) H 11/24/18 11:04 INR 1.19 (0.83-1.16) H 11/24/18 11:04 - Physical Exam Constitutional: no apparent distress, appears nourished Eyes: PERRL, anicteric sclera Ears, Nose, Mouth, Throat: moist mucous membranes, hearing normal Cardiovascular: No JVD, No edema Respiratory: no respiratory distress, reduced air movement Gastrointestinal: No tenderness, No ascites Skin: warm, normal color Musculoskeletal: no joint effusions, generalized weakness Neurologic: AAOx3 Psychiatric: interacting appropriately, not anxious ICD10 Worksheet Patient Problems: Problems Problem Status Onset Multiple rib fractures Acute Splenic rupture Acute
[2018-11-28] MEDS ORDERED: oxyCODONE IR 5 MG TAB PO PRN (15:25)
[2018-11-28] MEDS ORDERED: hydrALAZINE 20 MG/ML VIAL IVP PRN (17:09)
[2018-11-28] MEDS: HYDROCODONE/APAP 10/325 TAB PO PRN ×2 (18:00→22:10)
[2018-11-29] MEDS: HYDROCODONE/APAP 10/325 TAB PO PRN ×3 (03:32→22:40)
[2018-11-29] MEDS: amLODIPine BESYLATE 5 MG TAB PO SCH (08:25)
[2018-11-29] MEDS: EPLERENONE 25 MG TAB PO SCH ×2 (08:25→20:57)
[2018-11-29] MEDS: METOPROLOL TARTRATE 50 MG TAB PO SCH ×2 (08:26→20:56)
[2018-11-29] MEDS: CETIRIZINE 10 MG TAB PO SCH (08:26)
[2018-11-29] MEDS: SENNOSIDES/DOCUSATE SODIUM TAB PO SCH ×2 (08:26→20:57)
[2018-11-29] MEDS: FLUTICASONE NASAL 120 SPRAYS/16 GM MDI EACHNARE SCH (08:26)
[2018-11-29] MEDS: FLUTICASONE IH SCH ×2 (08:27→21:17)
[2018-11-29] MEDS: SALMETEROL IH SCH ×2 (08:27→21:17)
--- NOTE | 2018-11-29 09:26 | TRAUMAPN ---
Trauma Progress Note Assessment/Plan: 72yo M s/p ski accident c G4 splenic lac s/p embo, L rib 8-11 fx - VSS, HDS still on O2 this AM. Need to wean off - pain is controlled, he states he is using his IS and can pull 2000 - Hb stable, will recheck tomorrow - plan for dc home tomorrow. He will fly home to [place] later in the week Subjective: I want to go home tomorrow Objective: Vital Signs Temp Pulse Resp BP Pulse Ox 36.9 C 73 14 142/73 H 91 L 11/29/18 08:00 11/29/18 08:26 11/29/18 08:00 11/29/18 08:26 11/29/18 08:00 Laboratory Results 11/29/18 04:45 11/28/18 11/29/18 11/30/18 05:59 05:59 05:59 Intake Total 400 100 Balance 400 100 PT 15.3 SEC (12.0-15.0) H 11/24/18 11:04 INR 1.19 (0.83-1.16) H 11/24/18 11:04
--- NOTE | 2018-11-29 11:56 | HOSPPROG ---
Hospitalist Progress Note Assessment/Plan: 72-year-old male with past medical history of asthma and hypertension admitted with a splenic laceration and left rib fractures after crashing while skiing. #Splenic laceration -underwent embolization by Interventional Radiology. -rec vaccinated against capsulated organisms -H/H stable -Trauma primary -D/W Dr Martinez #Left rib fractures - pain control #History of asthma - continue home meds, ordered zyrtec and flonase for allergies. #Hypotension - now hypertensive -restarted home lopressor and norvasc. -hydralazine PRN, needed once last night Prophylaxis- per trauma Fluids- p.o. Electrolytes- within normal limits Nutrition- regular diet Dispo- inpatient for splenic laceration cont to monitor H/H likely DC in am Subjective: Feeling fine. No issues. Objective: Vital Signs Temp Pulse Resp BP Pulse Ox 36.9 C 73 14 142/73 H 91 L 11/29/18 08:00 11/29/18 08:26 11/29/18 08:00 11/29/18 08:26 11/29/18 08:00 Laboratory Results 11/29/18 04:45 11/28/18 11/29/18 11/30/18 05:59 05:59 05:59 Intake Total 400 100 Balance 400 100 PT 15.3 SEC (12.0-15.0) H 11/24/18 11:04 INR 1.19 (0.83-1.16) H 11/24/18 11:04 - Physical Exam Constitutional: no apparent distress, appears nourished Eyes: PERRL, anicteric sclera Ears, Nose, Mouth, Throat: moist mucous membranes, hearing normal Cardiovascular: No JVD, No edema Respiratory: no respiratory distress, reduced air movement Gastrointestinal: normoactive bowel sounds, No ascites Skin: warm, normal color Musculoskeletal: no joint effusions, generalized weakness Neurologic: AAOx3 Psychiatric: interacting appropriately, not anxious, not encephalopathic ICD10 Worksheet Patient Problems: Problems Problem Status Onset Multiple rib fractures Acute Splenic rupture Acute
[2018-11-29] MEDS: MAGNESIUM HYDROXIDE 30 ML UDCUP PO PRN (20:56)
[2018-11-30] MEDS: HYDROCODONE/APAP 10/325 TAB PO PRN ×2 (06:45→12:16)
[2018-11-30] MEDS: FLUTICASONE IH SCH (08:59)
[2018-11-30] MEDS: SALMETEROL IH SCH (08:59)
[2018-11-30] MEDS: EPLERENONE 25 MG TAB PO SCH (09:11)
[2018-11-30] MEDS: CETIRIZINE 10 MG TAB PO SCH (09:11)
[2018-11-30] MEDS: amLODIPine BESYLATE 5 MG TAB PO SCH (09:11)
[2018-11-30] MEDS: METOPROLOL TARTRATE 50 MG TAB PO SCH (09:11)
[2018-11-30] MEDS: SENNOSIDES/DOCUSATE SODIUM TAB PO SCH (09:12)
[2018-11-30] MEDS: FLUTICASONE NASAL 120 SPRAYS/16 GM MDI EACHNARE SCH (09:21)
--- NOTE | 2018-11-30 10:39 | ASMTLACE ---
LACE Length of stay for Answers: 7-13 days current admission Acuity / Level of Answers: Yes Care: Did the patient have an inpatient admission? Comorbidities - select Answers: Other Notes: Splenic laceration, rib all that apply fractures # of Emergency department Answers: 1-2 visits in the last 6 months Score: 10 Date Signed: 11/30/2018 10:38 AM Electronically Signed By:MOY Waterman
--- NOTE | 2018-11-30 11:12 | HOSPPROG ---
Hospitalist Progress Note Assessment/Plan: 72-year-old male with past medical history of asthma and hypertension admitted with a splenic laceration and left rib fractures after crashing while skiing. First encounter, chart reviewed. #Splenic laceration -underwent embolization by Interventional Radiology. -rec vaccinated against capsulated organisms -H/H stable -Trauma primary #Left rib fractures - pain control -using IS 10 x hour #dilated ascending aorta -needs to have this followed -reviewed this finding w him #ground glass opacities seen on CT scan and incidental nodules -should get further imaging and f/u when he returns to [place], [place] #History of asthma - continue home meds, ordered zyrtec and flonase for allergies. #Hypertension -restarted home Lopressor and Norvasc. -hydralazine PRN #plan: dc home, recommending he take a disk copy of his CT of his chest for close f/u with his PCP Subjective: Wily said he is feeling fine. Objective: Vital Signs Temp Pulse Resp BP Pulse Ox 37.3 C 76 18 142/80 H 91 L 11/30/18 07:51 11/30/18 07:51 11/30/18 07:51 11/30/18 07:51 11/30/18 07:51 Laboratory Results 11/30/18 04:51 11/29/18 11/30/18 12/01/18 05:59 05:59 05:59 Intake Total 100 400 Balance 100 400 PT 15.3 SEC (12.0-15.0) H 11/24/18 11:04 INR 1.19 (0.83-1.16) H 11/24/18 11:04 - Physical Exam Constitutional: no apparent distress, appears nourished, not in pain Eyes: PERRL Ears, Nose, Mouth, Throat: hearing normal Cardiovascular: regular rate and rhythym Respiratory: no rales or rhonchi, reduced air movement (left mid lobe down) Skin: warm, other (ecchymosis on left side of abdomen) Neurologic: AAOx3 Psychiatric: interacting appropriately ICD10 Worksheet Patient Problems: Problems Problem Status Onset Multiple rib fractures Acute Splenic rupture Acute
[2018-11-30 11:32] VITALS: BP 113/62
--- NOTE | 2018-11-30 12:11 | GDS ---
[f rep st] DISCHARGE SUMMARY PRESENT ILLNESS: The patient was admitted on 11/23/2018 after skiing into a tree. He sustained left rib fractures and a grade 4 splenic laceration. HOSPITAL COURSE: Patient underwent embolization of bleeding sites in the spleen, after which he was stable. He was observed multiple days with serial hematocrits which, while drifting down, were stable . Rib fractures were treated with narcotic pain medications. There was no associated hemo or pneumoth orax. An incidental finding of a left lower lobe lung nodule was seen on CT scan, and the patient was recom mended to follow up with a physician in [place] for this and documentation of this was put in his discharge instructions as well. FINAL DIAGNOSES: 1. Multiple left rib fractures, particularly left 8th and 9th. 2. Grade 4 splenic laceration status post embolization. DISPOSITION: Home. The patient was instructed to avoid aspirin, all aspirin-containing compounds, an d avoid physical activity which would put him at risk for further splenic injury for 3 months post in [place]. /[id number]/MODL
--- NOTE | 2018-11-30 12:23 | ASDISCHSUM ---
Discharge Information Plan Status:Home with No Needs Medically Cleared to Leave: Discharge Date: D/C Disposition: ADT D/C Disposition:Home, Routine, Self-Care Projected Discharge Date:11/30/2018 11:00 AM Transportation at D/C: Discharge Delay Reason: Follow-Up Date:11/30/2018 11:00 AM Discharge Slot: Final Diagnosis: Placement Information Referral Type:*Home Health Care Services Referral ID:[id number] Provider Name: Address 1: Phone Number: Address 2: Fax Number: City: Selection Factors: State: Patient Contact Information Contact Name:MILTON Relationship:Son Address: Home Phone: City: Alternate Phone: [facility] Code: Email: Financial Information Financial Class:Medicare Primary Plan Desc:MEDICARE INPATIENT Primary Plan Number:[id number] Secondary Plan Desc:[facility] Secondary Plan Number:[id number] Assessment Information LACE LACE Length of stay for Answers: 7-13 days current admission Acuity / Level of Answers: Yes Care: Did the patient have an inpatient admission? Comorbidities - select Answers: Other Notes: Splenic laceration, rib all that apply fractures # of Emergency department Answers: 1-2 visits in the last 6 months Score: 10 Date Signed: 11/30/2018 10:38 AM Electronically Signed By:MOY Waterman [facility] Initial CM Assessment Living Arrangements What is your living Answers: With Spouse arrangement? Who do you live with? Type Of Residence What kind of residence do Answers: House you live in? Type of Residence Facility Name Notes: Patient lives in [place], [place]. He has a son and a brother here in [place] and came here to [facility]. Discharge Plan Comments Coordination Status Comments Notes: Patient is a 72yo male from [place], [place] who came here to [facility] and hit a tree on his left side. He is being admitted for left rib fractures, splenic laceration,hypertension and asymptomatic cholelithiasis. There were 2 lung spots seen in his right chest as well which he has been advised to follow up with these in [place]. OT/PT evals have been ordered. D/C plan TBD. CM will follow. Date Signed: 11/24/2018 09:59 AM Electronically Signed By:Kanwal Swenson LCSW [facility] Progress Note CM Note CM Note Notes: Pts case discussed w/ Dr. Belcher. PT is recommending HC. CM met w/ pt for dispo planning. Pt is agreeable to HC services. Pt will be staying w/ his brother and sister in law in [place], [place]. Referral sent to [facility]. [facility] able to accept. Brother's address is [address] [place] [id number]. CM spoke w/ Dhaval with trauma and Dr. Bueno will be able to sign off on the HC orders. CM communicated this information w/ Cleo at [facility]. CM to follow. Plan: [facility] HC; PT Date Signed: 11/26/2018 02:42 PM Electronically Signed By:MOY Waterman Case Management Discharge Plan Note Case Management Discharge Discharge Order Complete? Answers: Yes Patient to Obtain Answers: Independently Medications Transportation Arranged Answers: Family/Friends EMTALA Complete Answers: No Case Management Transport Answers: No Form Complete Faxed Final Orders Answers: No Agency/Facility Transfer Answers: No Report Printed & Faxed to Receiving Agency Family Notified Answers: No Discharge Comments Notes: CM spoke to Dr. Rojas. Dr. Rojas reports that pt will only spend another day or two in [place] until he flys back to [place]. Cleo from [facility] will inform pt that their HC agency will not be following. CM available for changes. Plan: Independent Date Signed: 11/30/2018 12:22 PM Electronically Signed By:MOY Waterman Intervention Information Intervention Type:No Admission Order Date of Service:11/24/2018 08:51 AM Patient Type:Inpatient Staff Member:Shiela Ng Hours: Discipline: Severity: Comment: Intervention Type:*IM-Signed Date of Service:11/30/2018 10:44 AM Patient Type:Inpatient Staff Member:Bharti Bradford Hours: Discipline: Severity: Comment:
== END 2018-11-30 15:54 | disposition home or self-care (01) | DRG 988 ==
LOC: UNDOADMIN 16:04 → F3E 17:56
PROVIDERS: ADMIT Surgery; ATTEND Surgery
PROC: 04L43DZ Occlusion of Splenic Artery with Intraluminal Device, Percutaneous Approach (ICD-10-PCS; principal; 2018-11-24)
PROC: B4131ZZ Fluoroscopy of Splenic Arteries using Low Osmolar Contrast (ICD-10-PCS; principal; 2018-11-24)
DX: S36.032A Major laceration of spleen, initial encounter (principal); S22.42XA Multiple fractures of ribs, left side, initial encounter for closed fracture; S06.0X1A Concussion with loss of consciousness of 30 minutes or less, initial encounter; V00.322A Snow-skier colliding with stationary object, initial encounter; Y92.838 Other recreation area as the place of occurrence of the external cause; Y99.8 Other external cause status; D62 Acute posthemorrhagic anemia; R91.8 Other nonspecific abnormal finding of lung field; I10 Essential (primary) hypertension; E26.9 Hyperaldosteronism, unspecified; J45.909 Unspecified asthma, uncomplicated
CPT/HCPCS: 92523-GN; 96374; 97116-GP; 97161-GP; 97166-GO; 97535-GO; C1760; C1769; C1892; C1894; G0390; J0360; J1170; J1644; J2250; J2270; J2310; J2405; J3010; L0174; Q9967